=== PATIENT | female | born 1960 | race American Indian/Alaskan Native ===

== ENCOUNTER 2019-02-23 09:01 | Day surgery (SDC) | payer MEDICARE ==
[2019-02-23] MEDS ORDERED: NACL 0.9% 1000 ML 1,000 ML ONE (09:24)
--- NOTE | 2019-02-23 09:45 | Anesthesia Consultation ---
Anesthesia Consult and Med Hx Date of service: 02/23/19 - Airway Anesthetic Teeth Evaluation: Poor (multiple missing, broken teeth) ROM Head & Neck: Adequate Mental/Hyoid Distance: Adequate Mallampati Class: Class III Intubation Access Assessment: Possibly Difficult - Pre-Operative Health Status ASA Pre-Surgery Classification: ASA3 Proposed Anesthetic Plan: MAC - Pulmonary Hx Sleep Apnea: Yes (undiagnosed) - Cardiovascular System Hx Hypertension: Yes - Gastrointestinal Hx Gastroesophageal Reflux Disease: Yes - Endocrine Hx Non-Insulin Dependent Diabetes: Yes - Other Systems Hx Cancer: Yes (h/o cervical CA) Hx Obesity: Yes (Morbid, BMI 60.0)
--- NOTE | 2019-02-23 09:46 | Anesthesia Day of Surgery ---
Anesthesia Day of Surgery - Day of Surgery Patient Examined: Yes Patient H&P Reviewed: Yes Patient is NPO: Yes
[2019-02-23] MEDS ORDERED: NACL 0.9% 1000 ML 1,000 ML IV SCH (10:00)
[2019-02-23] MEDS ORDERED: DIPRIVAN 10 MG/ML IV ONE ×2 (10:23)
--- NOTE | 2019-02-23 10:58 | Short Stay Summary ---
Short Stay Documentation Date of service: 02/23/19 Narrative H&P: The patient presents for EGD to evaluate chronic nausea and vomiting and for screening colonoscopy having had no prior studies. - History Past Medical History: cancer (cervical cancer), diabetes, hypertension, hyper lipidemia, other (morbid obesity) Past Surgical History: hysterectomy Social history: no significant social history, single, no smoking, no alcohol ab use - Allergies and Medications Current Medications: Allergies No Known Allergies Allergy (Unverified 02/23/19 09:27) Home Medications Medication Instructions Recorded Confirmed Last Taken Type Escitalopram [Lexapro] 10 mg PO DAILY 02/23/19 02/23/19 02/16/19 08:00 History Liraglutide [Victoza 2-Shakir] 18 units SUB-Q QAM 02/23/19 02/23/19 02/22/19 09:00 History Lisinopril/Hydrochlorothiazide 1 each PO DAILY 02/23/19 02/23/19 02/21/19 09:00 History [Zestoretic 10-12.5 mg Tablet] Pravastatin [Pravachol] 40 mg PO QHS 02/23/19 02/23/19 02/21/19 15:00 History amLODIPine [Norvasc] 1 tab PO DAILY 02/23/19 02/23/19 02/23/19 07:30 History Active Medications Sodium Chloride (Nacl 0.9% 1000 Ml) 1,000 mls @ 50 mls/hr IV DIRECT KARINA - Physical exam General appearance: no acute distress, well-nourished, obese Integumentary: no rash, no growths, no abnormal pigmentation HEENT: Atraumatic, PERRLA, EOMI, Mucous membr. moist/pink Lungs: Clear to auscultation, Normal air movement Breasts: deferred Heart: Regular rate, Normal S1, Normal S2, No murmurs Gastrointestinal: normoactive bowel sounds, no tenderness, no distended, no masses, no guarding, no organomegaly, obese Female Genitourinary: deferred Rectal Exam: normal exam-external/orifice, normal rectal tone, no mass Extremities: no ischemia, pulses intact, pulses symmetrical, No edema, normal temperature, normal color, Full ROM Neurological: Normal gait, Normal speech, Strength at 5/5 X4 ext, Normal tone, Sensation intact, Cranial nerves 3-12 NL - Brief post op/procedure progress note Date of procedure: 02/23/19 Findings: reports dictated Estimated blood loss: none Pathology: list (antral biopsies for h.pylori) Specimen disposition: to lab Condition: stable - Disposition Condition at discharge: Good Disposition: DC-01 TO HOME OR SELFCARE - Discharge Diagnoses (1) Nausea and vomiting Status: Acute (2) Colon cancer screening Status: Acute (3) Diabetes 1.5, managed as type 1 Status: Acute (4) Morbid obesity Status: Acute Short Stay Discharge Plan Activity: other (no driving for 24 hours) Weight Bearing Status: Full Weight Bearing Diet: diabetic Follow up with: MINISTERIO JAFFE [Primary Care Provider] - 7 Days
--- NOTE | 2019-02-23 11:02 | Operative Report ---
Operative Report Operative Report: Date of procedure: 02/23/2019 Procedure: Esophagogastroduodenoscopy with antral biopsies for H. pylori. Preprocedure diagnosis: Chronic nausea and vomiting. Post procedure diagnosis: Mild to moderate erosive antral gastritis. No ulcers or outlet obstruction. Endoscopist: Dr. Gregory Anesthesia: Monitored anesthesia care per anesthesia department Medications: Propofol per anesthesia Estimated blood loss: 0 After careful discussion of the nature and purpose of the procedure as well as details the technique risks benefits and alternatives consent was obtained. The patient was placed in the left lateral decubitus position and medicated per anesthesia. The tip of the [employer] 570 video scope was passed per orum under direct vision into the esophagus and advanced into the stomach and descending duodenum. The descending duodenum the duodenal bulb and pylorus were symmetrical and normal. The scope was withdrawn into the stomach and the stomach then gently insufflated with air. The antrum revealed scattered punctate erosions. Biopsies were taken to assess for possible H. pylori infection in the antrum. The stomach was further insufflated and the scope was then retroflexed and partially withdrawn. The cardia, fundus, and body of the stomach were within normal limits and easily distensible.The scope was then withdrawn in the forward position. The esophagogastric junction was at 38 cm. The esophageal body was normal throughout. The procedure was was well tolerated and the patient was observed in recovery. Impressions: Mild to moderate erosive antral gastritis. No evidence of outlet obstruction or ulcer. Plan: Await pathology. The patient will call the office in 1 week to discuss the findings. Electronically signed: Dain Gregory MD
--- NOTE | 2019-02-23 11:03 | Operative Report ---
Operative Report Operative Report: Date of procedure: 02/23/2019 Preprocedure diagnosis: Colon cancer screening, no prior studies. Average risk. Post procedure diagnosis: Normal study Procedure: Colonoscopy to the cecum Endoscopist: Dr. Gregory Anesthesia: Monitored anesthesia care per anesthesia department Estimated blood loss: 0 Medications: Monitored anesthesia care. See separate report by anesthesia for details. After careful discussion of the nature and purpose of the procedure as well as details of the technique risks benefits and alternatives the patient gave consent. Please see recent history and physical from the office. The patient was placed in the left lateral decubitus position and medicated per anesthesia. A rectal exam was performed sphincter tone was normal there were no masses palpable. The [employer] 570 scope was passed transanally and advanced under continuous direct vision without difficulty to the cecum. The colon was well prepared. The cecum was normal. The ascending colon was normal and on forward and retroflexed views. The transverse colon, descending colon, and sigmoid colon were normal. The rectum was normal on forward and retroflexed views. The procedure was well-tolerated overall and the patient was observed in recovery. Conclusions: Normal colonoscopy to the cecum. Plan: Repeat colonoscopy in 10 years. Signed electronically: Dain Gregory M.D.
[2019-02-23 11:37] VITALS: BP 147/95
== END 2019-02-23 09:02 | disposition home or self-care (01) ==
LOC: GIO 09:01
PROVIDERS: ATTEND Internal Medicine Gastroenterology
DX: Z12.11 Encounter for screening for malignant neoplasm of colon (principal); K29.70 Gastritis, unspecified, without bleeding; K31.9 Disease of stomach and duodenum, unspecified; E13.9 Other specified diabetes mellitus without complications; E66.01 Morbid (severe) obesity due to excess calories; E78.00 Pure hypercholesterolemia, unspecified; I10 Essential (primary) hypertension; G47.30 Sleep apnea, unspecified; K21.9 Gastro-esophageal reflux disease without esophagitis; M19.90 Unspecified osteoarthritis, unspecified site; Z85.41 Personal history of malignant neoplasm of cervix uteri; Z98.890 Other specified postprocedural states; Z90.710 Acquired absence of both cervix and uterus; Z68.44 Body mass index [BMI] 60.0-69.9, adult; Z79.899 Other long term (current) drug therapy
CPT/HCPCS: 43239; 82962; 88305; 88342; G0121; J2704; J7030